=== PATIENT | female | born 1950 | race Asian ===

== ENCOUNTER 2016-10-21 10:38 | Emergency (ER) | payer MEDICARE, OTHER ==
[~2016-10-21] VITALS: Ht 149.9 cm; Wt 50.0 kg
[~2016-10-21 10:38] MED LIST: AMLO10TA55 PO; ASA3 PO; AUD NEB; BENA40TA3 PO; DSS100 PO; IBUP-2070 PO; IPRNEB NEB; LOVA20 PO; PREG75 PO
[2016-10-21 10:52] LABS: GLUCOSE,POINT OF CARE 198 MG/DL (70-110)
[2016-10-21] MEDS ORDERED: TraMADol HCL 50 MG TABLET PO ONE (12:30)
[2016-10-21 13:27] LABS: GLUCOSE,POINT OF CARE 133 MG/DL (70-110)
[2016-10-21 14:17] VITALS: BP 151/94
== END 2016-10-21 14:19 | disposition home or self-care (01) ==
LOC: EMS 10:39
DX: M19.90 Unspecified osteoarthritis, unspecified site (principal); J45.909 Unspecified asthma, uncomplicated; I10 Essential (primary) hypertension; E78.00 Pure hypercholesterolemia, unspecified; E11.9 Type 2 diabetes mellitus without complications; Z79.82 Long term (current) use of aspirin
CPT/HCPCS: 82962; 99283

== ENCOUNTER 2017-03-10 18:48 | Emergency (ER) | payer MEDICARE, OTHER ==
[~2017-03-10] VITALS: Ht 152.4 cm; Wt 59.1 kg
[~2017-03-10 18:48] MED LIST changes: -ASA3 PO; +ASPI-989 PO
[2017-03-10 19:37] LABS: GLUCOSE,POINT OF CARE 125 MG/DL (70-110)
[2017-03-10 21:50] VITALS: BP 136/85
[2017-03-10] MEDS ORDERED: HYDROCODONE/ACETAMINOPHEN 5-325 MG TABLET PO ONE (22:15)
== END 2017-03-10 22:10 | disposition home or self-care (01) ==
LOC: EMS 18:48
DX: M16.10 Unilateral primary osteoarthritis, unspecified hip (principal); M19.019 Primary osteoarthritis, unspecified shoulder; J45.909 Unspecified asthma, uncomplicated; E11.9 Type 2 diabetes mellitus without complications; F41.9 Anxiety disorder, unspecified; I10 Essential (primary) hypertension; E78.00 Pure hypercholesterolemia, unspecified
CPT/HCPCS: 82962; 99283

== ENCOUNTER → 2017-04-16 | Outpatient (CLI) | payer MEDICARE, OTHER ==
[~2017-04-16] MED LIST changes: +METF500T4 PO
[2017-04-16 12:14] LABS: BASOPHILS # (AUTO) 0.04 K/uL (0.00-0.20); BASOPHILS % (AUTO) 0.6 % (0.0-2.0); EOSINOPHILS # (AUTO) 0.25 K/uL (0.00-0.70); EOSINOPHILS % (AUTO) 3.45 % (1.0-6.0); HEMATOCRIT 37.1 % (36-46); HEMOGLOBIN 12.5 g/dL (12.0-16.0); LYMPHOCYTES # (AUTO) 1.8 K/uL (1.0-4.8); LYMPHOCYTES % (AUTO) 24.4 % (22.0-44.0); MEAN CORPUSCULAR HEMOGLOBIN 30.8 pg (26.0-34.0); MEAN CORPUSCULAR HGB CONC 33.7 G/dL (31.0-37.0); MEAN CORPUSCULAR VOLUME 91 fL (80-100); MONOCYTES # (AUTO) 0.4 K/uL (0.1-1.0); MONOCYTES % (AUTO) 6.1 % (2.0-9.0); NEUTROPHILS # (AUTO) 4.7 K/uL (1.8-7.7); NEUTROPHILS % (AUTO) 65.6 % (40.0-70.0); PLATELET COUNT (AUTO) 292 K/uL (150-450); RED BLOOD CELL COUNT(AUTO) 4.07 MIL/uL (4.00-5.20); RED CELL DISTRIBUTION WIDTH 13.4 % (11.5-14.5); WHITE BLOOD COUNT (AUTO) 7.2 K/uL (4.5-11.0)
[2017-04-16 12:55] LABS: ALANINE AMINOTRANSFERASE 44 U/L (12-78); ALBUMIN 3.8 g/dL (3.4-5.0); ANION GAP 11 mmol/L (8-16); ASPARTATE AMINOTRANSFERASE 19 U/L (15-37); BILIRUBIN,TOTAL 0.4 mg/dL (0.1-1.0); CALCIUM, TOTAL 9.2 mg/dL (8.8-10.5); CARBON DIOXIDE 25 mmol/L (22-29); CHLORIDE 101 mmol/L (98-107); CREATININE 0.81 mg/dL (0.60-1.30); GLOMERULAR FILTR. RATE CALC > 60 mL/min (>60); SODIUM SERUM 137 mmol/L (136-145); THYROID STIMULATING HORMONE 0.29 uIU/mL (0.36-3.74); TOTAL PROTEIN, SERUM 7.4 g/dL (6.4-8.2); UREA NITROGEN, BLOOD 22 mg/dL (7-18)
[2017-04-16 13:07] LABS: HEMOGLOBIN A1C 7.7 % (4.5-6.2)
[2017-04-16 13:08] LABS: CHOL/HDL RATIO 3.1 (3.9-5.7)
== END | disposition home or self-care (01) ==
LOC: LABPV 10:56
PROVIDERS: ATTEND Internal Medicine
DX: E11.9 Type 2 diabetes mellitus without complications (principal); I10 Essential (primary) hypertension; E55.9 Vitamin D deficiency, unspecified
CPT/HCPCS: 82306; 83036; 84443

== ENCOUNTER 2017-06-26 15:02 | Emergency (ER) | payer MEDICARE, OTHER ==
[~2017-06-26] VITALS: Ht 152.4 cm; Wt 54.5 kg
[~2017-06-26 15:02] MED LIST changes: -METF500T4 PO
[2017-06-26 15:15] VITALS: BP 129/88
[2017-06-26] MEDS ORDERED: METF500T4 PO (15:19)
[2017-06-26 15:27] LABS: GLUCOSE,POINT OF CARE 147 MG/DL (70-110)
[2017-06-26 16:02] LABS: INFLUENZA TYPE A NEGATIVE FOR TYPE A (NEGATIVE); INFLUENZA TYPE B NEGATIVE FOR TYPE B (NEGATIVE)
== END 2017-06-26 18:22 | disposition left against medical advice (07) ==
LOC: EMS 15:07
DX: R05 Cough (principal); J45.909 Unspecified asthma, uncomplicated; E11.9 Type 2 diabetes mellitus without complications; E78.00 Pure hypercholesterolemia, unspecified; I10 Essential (primary) hypertension; Z53.21 Procedure and treatment not carried out due to patient leaving prior to being seen by health care provider
CPT/HCPCS: 82962; 87804

== ENCOUNTER 2017-06-28 07:33 | Emergency (ER) | payer MEDICARE, OTHER ==
[~2017-06-28] VITALS: Ht 152.4 cm; Wt 50.0 kg
[~2017-06-28 07:33] MED LIST changes: +METF500T4 PO
[2017-06-28] MEDS ORDERED: ACETAMINOPHEN 500 MG TABLET PO ONE (08:15)
[2017-06-28 12:58] VITALS: BP 143/99
== END 2017-06-28 13:49 | disposition home or self-care (01) ==
LOC: EMS 07:36
DX: M25.552 Pain in left hip (principal); M54.5 Low back pain; J45.909 Unspecified asthma, uncomplicated; E11.9 Type 2 diabetes mellitus without complications; E78.00 Pure hypercholesterolemia, unspecified; I10 Essential (primary) hypertension; Z79.82 Long term (current) use of aspirin
CPT/HCPCS: 72100; 73503; 99284

== ENCOUNTER 2017-07-03 07:17 | Emergency (ER) | payer MEDICARE, OTHER ==
[~2017-07-03] VITALS: Ht 152.4 cm; Wt 50.0 kg
[2017-07-03 07:39] VITALS: BP 155/89
[2017-07-03] MEDS ORDERED: ACETAMINOPHEN 325 MG TABLET PO ONE (08:00)
[2017-07-03 12:24] LABS: GLUCOSE,POINT OF CARE 163 MG/DL (70-110)
== END 2017-07-03 08:24 | disposition home or self-care (01) ==
LOC: EMS 07:20
DX: M54.5 Low back pain (principal); I10 Essential (primary) hypertension; E78.00 Pure hypercholesterolemia, unspecified; E11.9 Type 2 diabetes mellitus without complications; J45.909 Unspecified asthma, uncomplicated; Z59.0 Homelessness
CPT/HCPCS: 82962; 99283

== ENCOUNTER 2017-10-30 14:37 | Emergency (ER) | payer MEDICARE, OTHER ==
[~2017-10-30] VITALS: Ht 152.4 cm; Wt 45.5 kg
[2017-10-30 17:09] LABS: BASOPHILS % (AUTO) 0.7 % (0.0-2.0); EOSINOPHILS % (AUTO) 0.2 % (1.0-6.0); HEMATOCRIT 37.7 % (36-46); HEMOGLOBIN 12.6 g/dL (12.0-16.0); LYMPHOCYTES # (AUTO) 2.1 K/uL (1.0-4.8); LYMPHOCYTES % (AUTO) 17.2 % (22.0-44.0); MEAN CORPUSCULAR HEMOGLOBIN 28.6 pg (26.0-34.0); MEAN CORPUSCULAR HGB CONC 33.4 G/dL (31.0-37.0); MEAN CORPUSCULAR VOLUME 86 fL (80-100); MONOCYTES # (AUTO) 0.8 K/uL (0.1-1.0); MONOCYTES % (AUTO) 6.6 % (2.0-9.0); NEUTROPHILS # (AUTO) 9.1 K/uL (1.8-7.7); NEUTROPHILS % (AUTO) 75.3 % (40.0-70.0); PLATELET COUNT (AUTO) 271 K/uL (150-450); RED BLOOD CELL COUNT(AUTO) 4.39 MIL/uL (4.00-5.20); RED CELL DISTRIBUTION WIDTH 14.3 % (11.5-14.5)
[2017-10-30 17:18] LABS: ANION GAP 12 mmol/L (8-16); CALCIUM, TOTAL 9.2 mg/dL (8.8-10.5); CARBON DIOXIDE 26 mmol/L (22-29); CHLORIDE 100 mmol/L (98-107); CREATININE 0.81 mg/dL (0.60-1.30); GLOMERULAR FILTR. RATE CALC > 60 mL/min (>60); GLUCOSE,RANDOM 105 mg/dL (70-110); POTASSIUM 3.9 mmol/L (3.5-5.1); SODIUM SERUM 138 mmol/L (136-145); UREA NITROGEN, BLOOD 18 mg/dL (7-18)
[2017-10-30 17:23] LABS: ALANINE AMINOTRANSFERASE 18 U/L (12-78); ALBUMIN 3.4 g/dL (3.4-5.0); ALKALINE PHOSPHATASE 73 U/L (46-116); ASPARTATE AMINOTRANSFERASE 12 U/L (15-37); BILIRUBIN,TOTAL 0.3 mg/dL (0.1-1.0); LIPASE 218 U/L (73-393); TOTAL PROTEIN, SERUM 7.4 g/dL (6.4-8.2)
[2017-10-30 19:27] LABS: APPEARANCE,URINE CLEAR (CLEAR); GLUCOSE, URINE (UA) NEGATIVE (NEGATIVE); KETONES,URINE 40 mg/dL (NEGATIVE); LEUKOCYTE ESTERASE ,URINE SMALL (NEGATIVE); NITRATE,URINE NEGATIVE (NEGATIVE); OCCULT BLOOD,URINE NEGATIVE (NEGATIVE); PH,URINE 6.5 (5.0-8.0); PROTEIN,URINE TRACE (NEGATIVE)
[2017-10-30 19:52] LABS: BILIRUBIN,URINE PRELIM. POSITIVE (NEGATIVE)
[2017-10-30 20:27] LABS: RBC,URINE 0-2 /HPF (0-2)
[2017-10-30 20:28] LABS: BACTERIA,URINE None Seen /HPF (None Seen); SQUAMOUS EPITHELIAL CELL,UR Few /LPF (None Seen)
[2017-10-31] MEDS ORDERED: HYDROCHLOROTHIAZIDE 25 MG TABLET PO ONE (11:15)
[2017-10-31 11:21] VITALS: BP 178/98
== END 2017-10-31 11:24 | disposition home or self-care (01) ==
LOC: EMS 14:38
DX: R51 Headache (principal); R11.2 Nausea with vomiting, unspecified; R30.0 Dysuria; I10 Essential (primary) hypertension; J45.909 Unspecified asthma, uncomplicated; E78.00 Pure hypercholesterolemia, unspecified; E11.9 Type 2 diabetes mellitus without complications
CPT/HCPCS: 51702; 99284

== ENCOUNTER 2018-08-01 11:38 | Emergency (ER) | payer MEDICARE, OTHER ==
[~2018-08-01] VITALS: Ht 162.6 cm; Wt 56.8 kg
[2018-08-01] MEDS ORDERED: VENL25TA47 PO (12:25)
[2018-08-01] MEDS ORDERED: OXYB5 PO (12:25)
[2018-08-01] MEDS ORDERED: FLUT16H NASAL (12:27)
[2018-08-01] MEDS ORDERED: BENA5TAB26 PO (12:27)
[2018-08-01] MEDS ORDERED: AMLO-511 PO (12:27)
[2018-08-01] MEDS ORDERED: MIRT15 PO (12:27)
[2018-08-01] MEDS ORDERED: SITA1TBM7 PO (12:27)
[2018-08-01] MEDS ORDERED: ACETAMINOPHEN 500 MG TABLET PO ONE (13:00)
[2018-08-01 18:45] VITALS: BP 169/94
== END 2018-08-01 19:17 | disposition home or self-care (01) ==
LOC: EMS 11:39
DX: S70.02XA Contusion of left hip, initial encounter (principal); S50.02XA Contusion of left elbow, initial encounter; R19.00 Intra-abdominal and pelvic swelling, mass and lump, unspecified site; M85.88 Other specified disorders of bone density and structure, other site; I10 Essential (primary) hypertension; E11.9 Type 2 diabetes mellitus without complications; E78.00 Pure hypercholesterolemia, unspecified; J45.909 Unspecified asthma, uncomplicated; F41.9 Anxiety disorder, unspecified; Z79.899 Other long term (current) drug therapy; W01.0XXA Fall on same level from slipping, tripping and stumbling without subsequent striking against object, initial encounter; Y93.89 Activity, other specified; Y92.89 Other specified places as the place of occurrence of the external cause; Y99.8 Other external cause status
CPT/HCPCS: 73503